=== PATIENT | female | born 1985 ===

== ENCOUNTER → 2020-10-05 | Outpatient (CLI) | payer OTHER | END | disposition home or self-care (01) | LOC: PRENATAL 10:21 | PROVIDERS: ATTEND Obstetrics & Gynecology Maternal & Fetal Medicine | DX: O35.0XX1 Maternal care for (suspected) central nervous system malformation in fetus, fetus 1 (principal); O35.3XX1 Maternal care for (suspected) damage to fetus from viral disease in mother, fetus 1; O98.512 Other viral diseases complicating pregnancy, second trimester; O09.512 Supervision of elderly primigravida, second trimester; O99.212 Obesity complicating pregnancy, second trimester; Z36.89 Encounter for other specified antenatal screening; Z3A.22 22 weeks gestation of pregnancy ==

== ENCOUNTER 2021-01-26 06:13 | Inpatient (IN) | payer OTHER ==
[~2021-01-26] VITALS: Wt 3.6 kg
[~2021-01-26 06:13] MED LIST: PRENATAL PO
== END 2021-01-30 17:17 | disposition home or self-care (01) | DRG 785 ==
LOC: SURG-SUITE 01-27 06:16 → O/R 01-27 06:16 → SURH 01-27 07:00 → SURG-SUITE 01-27 11:33 → SURH 01-27 12:24 → SURG-SUITE 01-30 17:17
PROVIDERS: ADMIT Obstetrics & Gynecology; ATTEND Obstetrics & Gynecology
PROC: 0UB70ZZ Excision of Bilateral Fallopian Tubes, Open Approach (ICD-10-PCS; 2021-01-27)
PROC: 4A1HXFZ Monitoring of Products of Conception, Cardiac Rhythm, External Approach (ICD-10-PCS; 2021-01-27)
PROC: 10D00Z1 Extraction of Products of Conception, Low, Open Approach (ICD-10-PCS; principal; 2021-01-27 07:00)
DX: O34.211 Maternal care for low transverse scar from previous cesarean delivery (principal); Z53.29 Procedure and treatment not carried out because of patient's decision for other reasons; Z30.2 Encounter for sterilization; Z37.0 Single live birth; Z3A.38 38 weeks gestation of pregnancy